=== PATIENT | female | born 1985 | race Caucasian/White ===

== ENCOUNTER 2018-08-25 20:38 | Emergency (ER) | payer OTHER ==
[~2018-08-25] VITALS: Ht 162.6 cm; Wt 73.5 kg
[2018-08-25 20:40] VITALS: BP 119/89; Ht 162.6 cm; Wt 73.5 kg
== END 2018-08-25 23:42 | disposition left against medical advice (07) ==
LOC: ED 20:38
DX: Z53.21 Procedure and treatment not carried out due to patient leaving prior to being seen by health care provider (principal)